=== PATIENT | male | born 1960 | race Caucasian/White ===

== ENCOUNTER 2024-03-31 09:03 | Emergency (ER) | payer BC, SELFPAY ==
[2024-03-31 09:05] VITALS: BP 149/99
--- NOTE | 2024-03-31 09:52 | ED.GENMED ---
History of Present Illness
General
Chief Complaint: Extremity Pain (non-traumatic)
Time Seen by Provider: 03/31/24 09:51
History of Present Illness
History of Present Illness:
TIME OF INITIAL ENCOUNTER: 10 AM
HPI: Patient presents due to concerns of left lower extremity pain posteriorly. He just flew from [place] (20 hours) and is concerned about DVT after he googled his symptoms. He has no shortness of breath. He did not have any pain until he was
walking toward baggage claim.
EXAM:
GENERAL: Well appearing in no distress
HEENT: Moist oral mucosa
NEUROLOGIC: Excellent strength all extremities, no obvious coordination deficits
PSYCHIATRIC: Appropriate mental status, normal insight and judgement
EXTREMITIES: Nontender, no edema, moves all extremities equally, there is no calf tenderness and both calves are soft, no clinical suspicion for DVT and no evidence of cellulitis no palpable abnormality
SKIN: No rash, no lesions
NUMBER AND COMPLEXITY OF PROBLEMS ADDRESSED AT THE ENCOUNTER
� Chronic conditions affecting care: Denies any significant past medical history
� Acute Exacerbation and/or Progression of Chronic Illness: This is an acute problem
� Differential Diagnosis includes: Muscle strain, highly doubt DVT, Mendez's cyst unlikely given the location
AMOUNT AND/OR COMPLEXITY OF DATA TO BE REVIEWED AND ANALYZED
� I performed an independent evaluation of and my interpretation is:
EKG:
CT:
X-rays:
Laboratory Studies:
Other: Ultrasound imaging personally reviewed and agree with radiologist interpretation that there is no DVT
� Review of other/old records: [facility]
� Clinical information was obtained by an independent historian: None needed
� Prescriptions/Medications Considered but not given:
� Further testing considered but not performed:
RISK OF COMPLICATIONS AND/OR MORBIDITY OR MORTALITY OF PATIENT MANAGEMENT
� Social determinants of health affecting care: Lives at home
� Discussion with other providers:
� Escalation of care including admission/observation vs risk of discharge considered: Ultrasound imaging shows no sign of DVT. Favor more of a musculoskeletal etiology such as calf strain.
ANY OTHER UPDATES:
Phy Exam
Physical Exam
Physical Exam:
See HPI
Course
Orders/Labs/Results
Orders:
Orders
03/31/24 09:08
Venous Doppler Lwr Ext Left [US Periph Venous LOWER Ext LT] Urgent
Comment:
Reason For Exam: posterior leg pain after long flight
Vital Signs
Initial and Last Documented VS:
Initial Vital Signs
Temp Pulse Resp BP Pulse Ox
98.2 F 59 18 149/99 99
03/31/24 09:05 03/31/24 09:05 03/31/24 09:05 03/31/24 09:05 03/31/24 09:05
Last Documented Vital Signs
Temp Pulse Resp BP Pulse Ox
98.2 F 59 18 149/99 99
03/31/24 09:05 03/31/24 09:05 03/31/24 09:05 03/31/24 09:05 03/31/24 09:05
*Critical Care Note
Total Time (30-74mins, 75-104mins- exclusive of procedures): Not Applicable
ED Attending Note
-
Portions of this chart may have been created with voice recognition software.� Occasional wrong word or��sound alike� substitutions may have occurred due to the inherent limitations of voice recognition software.
Discharge Plan
Departure
Patient Disposition: Home (Routine Discharge)
Date of Disposition: 03/31/24
Time of Disposition: 10:42
Patient with high blood pressure during this ER visit?: Yes
Discharge Problem:
Strain of left calf muscle
Instructions: Muscle and Bone Pain (DC)
Activity Restrictions/Additional Instructions:
Consider Motrin for pain and try to stay hydrated. Return here if worse or other concerns.
Interventions
Interventions:
*Risk Screen - Suicide Last Done: 03/31/24 09:05
*General Assessment Last Done: 03/31/24 09:05
*Neglect/Abuse Screening Last Done: 03/31/24 09:05
ED- Fall Risk Assessment Last Done: 03/31/24 10:01
*ED COVID-19 Vaccine History Last Done: 03/31/24 10:01
*Nursing Disposition Last Done: 03/31/24 11:17
ED-Skin Assessment Last Done: 03/31/24 10:01
ED-Peripheral Vascular Assessment Last Done: 03/31/24 10:01
ED-Musculoskeletal Assessment Last Done: 03/31/24 10:01
Discharge Date and Time
Discharge Date/Time: 03/31/24 11:18
Print Language: BOTSWANAN
== END 2024-03-31 11:18 | disposition home or self-care (01) ==
LOC: EMR 09:03
PROVIDERS: EMERGENCY PHYSICIAN Emergency Medicine
DX: S86.112A Strain of other muscle(s) and tendon(s) of posterior muscle group at lower leg level, left leg, initial encounter (principal); Y93.01 Activity, walking, marching and hiking; M79.605 Pain in left leg
CPT/HCPCS: 99284; 93971

== ENCOUNTER → 2024-12-31 09:17 | Outpatient (REF) | payer BC, SELFPAY | LOC: HWRAD 09:17 | DX: R22.2 Localized swelling, mass and lump, trunk (principal) | CPT/HCPCS: 76604 ==

== ENCOUNTER → 2025-03-13 07:35 | Outpatient (REF) | payer BC, SELFPAY | LOC: MRI 07:35 | PROVIDERS: ATTENDING PHYSICIAN Surgery; FAMILY PHYSICIAN Family Medicine | DX: R22.2 Localized swelling, mass and lump, trunk (principal) | CPT/HCPCS: 71552; A9575 ==

== ENCOUNTER 2025-04-25 06:15 | Day surgery (SDC) | payer BC, SELFPAY ==
[2025-04-21 08:08] LABS: Blood Urea Nitrogen 20 mg/dl (9-20); Calcium 9.6 mg/dl (8.4-10.2); Carbon Dioxide 33 mmol/L (22-30); Chloride 101 mmol/L (98-107); Glucose 91 mg/dl (70-99); Potassium 5.7 mmol/L (3.5-5.1); Sodium 140 mmol/L (135-145); eGFR > 60.00
--- NOTE | 2025-04-21 10:02 | PTCARENOTE ---
Abnormal K+ 5.7 collected 04/21/[address] Astrid at Dr Huggins's office.
--- NOTE | 2025-04-21 14:40 | PTCARENOTE ---
Patients 04/21- potassium 5.7- Dr. Huffman notified- to be repeated day of surgery
[2025-04-25 08:21] VITALS: BMI 22.8
[2025-04-25 08:23] VITALS: BMI 22.8
[2025-04-25 08:24] VITALS: BP 134/79
[2025-04-25] MEDS: TYLENOL 1000 MG PO (08:45)
[2025-04-25] MEDS: NORMOSOL-R/PLASMALYTE-A 1000 IV (08:45)
[2025-04-25] MEDS: CELEBREX 200 MG PO (08:45)
[2025-04-25 10:34] VITALS: BP 115/73; BP 134/79
[2025-04-25 10:45] VITALS: BP 105/71
[2025-04-25 10:58] VITALS: BP 114/58
[2025-04-25 11:12] VITALS: BP 120/71
[2025-04-25 11:29] VITALS: BP 125/75
== END 2025-04-25 11:29 | disposition home or self-care (01) ==
LOC: SDS 06:15
PROVIDERS: ATTENDING PHYSICIAN Specialist
DX: D17.1 Benign lipomatous neoplasm of skin and subcutaneous tissue of trunk (principal); D17.0 Benign lipomatous neoplasm of skin and subcutaneous tissue of head, face and neck; D17.9 Benign lipomatous neoplasm, unspecified
CPT/HCPCS: 23073; 36415; 80048; 88304; 88341; 88342; 93005